=== PATIENT | female | born 1995 | race Caucasian/White ===

== ENCOUNTER 2024-08-26 07:33 | Emergency (ER) | payer BC ==
[~2024-08-26] VITALS: Ht 160 cm; Wt 86.2 kg
[2024-08-26 08:02] LABS: Source, Urine Voided
[2024-08-26 08:04] LABS: BASOPHILS ABSOLUTE AUTO 0.04 K/mm3 (0.00-0.23); BASOPHILS PERCENT AUTO 0 % (0-2); EOSINOPHILS ABSOLUTE AUTO 0.11 K/mm3 (0.00-0.68); EOSINOPHILS PERCENT AUTO 1 % (0-6); Hematocrit 37.3 % (33.0-51.0); Hemoglobin 12.9 g/dL (11.5-16.0); IMMATURE GRAN ABSOLUTE AUTO 0.06 K/mm3 (0.00-0.10); IMMATURE GRAN PERCENT AUTO 1 % (0-1); LYMPHOCYTES ABSOLUTE AUTO 2.96 K/mm3 (0.84-5.20); LYMPHOCYTES PERCENT AUTO 27 % (21-46); MONOCYTES ABSOLUTE AUTO 0.62 K/mm3 (0.16-1.47); MONOCYTES PERCENT AUTO 6 % (4-13); Mean Corpuscular HGB 32.4 pg (26.0-34.0); Mean Corpuscular HGB Conc 34.6 g/dL (31.5-36.5); Mean Corpuscular Volume 94 fL (80-100); Mean Platelet Volume 9.9 fL (9.1-12.4); NEUTROPHILS ABSOLUTE AUTO 7.18 K/mm3 (1.96-9.15); NEUTROPHILS PERCENT AUTO 65 % (41-73); Platelet Count 232 K/mm3 (150-400); RDW Coefficient Variation 13.2 % (11.7-14.2); RDW Standard Deviation 45.7 fL (35.1-46.3); Red Blood Cell Count 3.98 M/mm3 (3.80-5.20); White Blood Cell Count 10.97 K/mm3 (4.00-11.30)
[2024-08-26 08:14] LABS: Appearance, Urine Clear (Clear); Bilirubin, Urine Neg (Neg); Blood, Urine Neg (Neg); Color, Urine Yellow (P-Yellow); Glucose Qualitative, Urine Neg (Neg); Ketones, Urine Neg (Neg); Leukocyte Esterase, Urine 1+ (Neg); Nitrite, Urine Neg (Neg); Protein, Urine Neg (Neg); Specific Gravity, Urine 1.015 (1.003-1.022); Urobilinogen, Urine NORM (Normal)
[2024-08-26] MEDS ORDERED: Acetaminophen 500 MG Tab PO ONE (08:15)
[2024-08-26] MEDS ORDERED: Albuterol 2.5 MG/3 ML VIAL INH SCH (08:15)
[2024-08-26 08:20] LABS: International Normalized Ratio 1.02; Prothrombin Time Results 10.9 Sec (9.7-11.5)
[2024-08-26 08:22] LABS: Albumin, Blood 2.7 g/dL (3.4-5.0); Albumin/Globulin Ratio 0.7 (0.8-1.8); Bilirubin, Total 0.2 mg/dL (0.1-1.0); Bun/Creatinine Ratio 13.2 (12.0-20.0); Calcium, Blood 8.4 mg/dL (8.5-10.1); Creatinine, Blood 0.53 mg/dL (0.40-1.00); Globulin, Blood 3.7 g/dL (2.2-4.0); Potassium, Blood 3.9 mmol/L (3.5-5.5); Total Protein, Blood 6.4 g/dL (6.4-8.2)
[2024-08-26 08:25] LABS: Bacteria Many /hpf; Red Blood Cells, Urine 0-2 /hpf (0-2); Squamous Epithelial Cells Many /hpf (Few)
[2024-08-26 09:54] VITALS: BP 134/76
[2024-08-26] MEDS ORDERED: ALBU90OI INH (10:47)
== END 2024-08-26 10:56 | disposition home or self-care (01) ==
LOC: ER 07:33
PROVIDERS: Student in an Organized Health Care Education/Training Program
DX: O99.891 Other specified diseases and conditions complicating pregnancy (principal); R07.81 Pleurodynia; Z3A.27 27 weeks gestation of pregnancy; Z88.0 Allergy status to penicillin
CPT/HCPCS: 71045; 80053; 81001; 83735; 84484; 85025; 85379; 85610; 87086; 93005; 93010; 94640; 94664; 99285-25; A9270

== ENCOUNTER 2024-11-23 21:54 | Inpatient (IN) | payer BC ==
[~2024-11-23] VITALS: Ht 160 cm; Wt 97.7 kg
[~2024-11-23 21:54] MED LIST: ALBU90OI INH
[2024-11-23 22:15] VITALS: BP 129/78
[2024-11-24] VITALS (25 sets, daily range): BP systolic 102–133; BP diastolic 56–80
[2024-11-24] MEDS ORDERED: FentaNYL Citrate 50 MCG/ML 2 ML Injection IV PRN ×3 (00:30→09:30)
[2024-11-24] MEDS ORDERED: Acerola C500 MG PO (01:14)
[2024-11-24] MEDS ORDERED: IRON18 M1 PO (01:15)
[2024-11-24] MEDS ORDERED: PRENATAL TABLE1 EAC2 PO (01:16)
[2024-11-24] MEDS ORDERED: VITAMIN D5000 UNIT PO (01:16)
[2024-11-24] MEDS ORDERED: SERT100 PO (01:17)
[2024-11-24] MEDS ORDERED: Vitamin B Comple1 EA PO (01:17)
[2024-11-24 01:53] LABS: BASOPHILS ABSOLUTE AUTO 0.04 K/mm3 (0.00-0.23); BASOPHILS PERCENT AUTO 0 % (0-2); EOSINOPHILS ABSOLUTE AUTO 0.10 K/mm3 (0.00-0.68); EOSINOPHILS PERCENT AUTO 1 % (0-6); Hematocrit 38.4 % (33.0-51.0); Hemoglobin 13.4 g/dL (11.5-16.0); IMMATURE GRAN ABSOLUTE AUTO 0.10 K/mm3 (0.00-0.10); IMMATURE GRAN PERCENT AUTO 1 % (0-1); LYMPHOCYTES ABSOLUTE AUTO 3.17 K/mm3 (0.84-5.20); LYMPHOCYTES PERCENT AUTO 24 % (21-46); MONOCYTES ABSOLUTE AUTO 0.72 K/mm3 (0.16-1.47); MONOCYTES PERCENT AUTO 5 % (4-13); Mean Corpuscular HGB Conc 34.9 g/dL (31.5-36.5); Mean Corpuscular Volume 92 fL (80-100); NEUTROPHILS ABSOLUTE AUTO 9.25 K/mm3 (1.96-9.15); NEUTROPHILS PERCENT AUTO 69 % (41-73); NRBC ABSOLUTE 0.00 K/mm3 (0.00-0.02); NRBC Auto 0.0 /100 WBC (0.0-0.2); Platelet Count 247 K/mm3 (150-400); RDW Coefficient Variation 13.0 % (11.7-14.2); RDW Standard Deviation 43.0 fL (35.1-46.3)
[2024-11-24] MEDS ORDERED: CeFAZolin Sodium 2,000 MG in NS 100 ML IV SCH ×2 (09:15→18:00)
[2024-11-24] MEDS ORDERED: Ondansetron HCl 2 MG / ML 2ML Vial IV PRN ×3 (09:15→11:25)
[2024-11-24] MEDS ORDERED: Methylergonovine Maleate 0.2MG / ML 1ML Amp IM PRN ×2 (09:15→11:20)
[2024-11-24] MEDS ORDERED: Carboprost Tromethamine 250 MCG/ML 1ML Amp IM PRN (09:15)
[2024-11-24] MEDS ORDERED: Oxytocin 10 Unit / ML Vial IM PRN (09:15)
[2024-11-24] MEDS ORDERED: OXYTOCIN/RINGER'S LACTATE 500 ML IV PRN (09:15)
[2024-11-24] MEDS ORDERED: Metoclopramide HCl 5MG / ML 2ML Vial ONE (09:21)
[2024-11-24] MEDS ORDERED: Citric Acid/Sodium Citrate 30 ML BTL ONE (09:21)
[2024-11-24] MEDS ORDERED: HYDROmorphone HCl/Pf 1MG SYR IV PRN (09:25)
[2024-11-24] MEDS ORDERED: Prochlorperazine Edisylate 10 mg Vial IV PRN (09:25)
[2024-11-24] MEDS ORDERED: Metoclopramide HCl 5MG / ML 2ML Vial IV PRN (09:30)
[2024-11-24] MEDS ORDERED: Citric Acid/Sodium Citrate 30 ML BTL PO ONE (09:30)
[2024-11-24] MEDS ORDERED: Albuterol 2.5 MG/3 ML VIAL INH PRN (09:30)
[2024-11-24] MEDS ORDERED: Metoclopramide HCl 5MG / ML 2ML Vial IV ONE (09:35)
[2024-11-24] MEDS ORDERED: Ondansetron HCl 2 MG / ML 2ML Vial ONE (10:18)
[2024-11-24] MEDS ORDERED: Dexamethasone Sod Phos 10 MG/ML 1ML VIAL ONE (10:18)
[2024-11-24] MEDS ORDERED: Oxytocin 10 Unit / ML Vial ONE (10:19)
[2024-11-24] MEDS ORDERED: Methylergonovine Maleate 0.2MG / ML 1ML Amp ONE (10:28)
[2024-11-24 10:38] LABS: PCO2 Cord - Arterial 72.1 mmHg (40-50); PO2 Cord - Arterial < 14.0 mmHg (16-20); pH Cord - Arterial 7.17 (7.28-7.35)
[2024-11-24 10:39] LABS: PCO2 Cord - Venous 52.3 mmHg (40-50); PO2 Cord - Venous 18.3 mmHg (28-32); pH Umbilical Cord - Venous 7.31 (7.26-7.35)
[2024-11-24] MEDS ORDERED: OXYTOCIN/RINGER'S LACTATE 500 ML IV SCH (11:15)
[2024-11-24] MEDS ORDERED: Morphine Sulfate 4 MG/1 ML Injection IV PRN (11:20)
[2024-11-24] MEDS ORDERED: OxyCODONE 5 mg/Acetamin 325 mg TABLET PO PRN (11:25)
[2024-11-24] MEDS ORDERED: Tranexamic Acid 100 ML IV SCH (11:35)
[2024-11-24] MEDS ORDERED: Ketorolac Tromethamine 30mg Vial IV SCH (12:00)
[2024-11-25 06:02] VITALS: BP 126/67
[2024-11-25 06:12] LABS: BASOPHILS ABSOLUTE AUTO 0.04 K/mm3 (0.00-0.23); BASOPHILS PERCENT AUTO 0 % (0-2); EOSINOPHILS ABSOLUTE AUTO 0.06 K/mm3 (0.00-0.68); EOSINOPHILS PERCENT AUTO 0 % (0-6); Hematocrit 34.3 % (33.0-51.0); Hemoglobin 11.9 g/dL (11.5-16.0); IMMATURE GRAN ABSOLUTE AUTO 0.06 K/mm3 (0.00-0.10); IMMATURE GRAN PERCENT AUTO 0 % (0-1); LYMPHOCYTES ABSOLUTE AUTO 3.16 K/mm3 (0.84-5.20); LYMPHOCYTES PERCENT AUTO 21 % (21-46); MONOCYTES ABSOLUTE AUTO 0.95 K/mm3 (0.16-1.47); MONOCYTES PERCENT AUTO 6 % (4-13); Mean Corpuscular HGB Conc 34.7 g/dL (31.5-36.5); Mean Corpuscular Volume 93 fL (80-100); NEUTROPHILS ABSOLUTE AUTO 11.10 K/mm3 (1.96-9.15); NEUTROPHILS PERCENT AUTO 72 % (41-73); NRBC ABSOLUTE 0.00 K/mm3 (0.00-0.02); NRBC Auto 0.0 /100 WBC (0.0-0.2); Platelet Count 201 K/mm3 (150-400); RDW Coefficient Variation 13.0 % (11.7-14.2); RDW Standard Deviation 43.6 fL (35.1-46.3)
[2024-11-25 07:10] VITALS: BP 110/63
[2024-11-25] MEDS ORDERED: Prenatal Vit/FE Fumarate/FA 1 Tab PO SCH (09:00)
[2024-11-25] MEDS ORDERED: Ascorbic Acid 250 MG Chew PO SCH (09:00)
[2024-11-25] MEDS ORDERED: Cholecalciferol 1000 Unit Tablet (=25MCG) PO SCH (09:00)
[2024-11-25 17:02] VITALS: BP 116/71
[2024-11-25 20:08] VITALS: BP 136/72
[2024-11-26 01:37] VITALS: BP 129/79
[2024-11-26 03:37] VITALS: BP 117/64
[2024-11-26 08:42] VITALS: BP 125/60
[2024-11-26 13:39] VITALS: BP 116/67
[2024-11-26 19:47] VITALS: BP 137/92
[2024-11-26 19:48] VITALS: BP 128/85
== END 2024-11-26 20:03 | disposition home or self-care (01) | DRG 788 ==
LOC: OBS 21:54 → BC 21:56 → OBS 11-24 00:53 → BC 11-24 00:54 → NUR 11-24 00:54 → BC 11-24 01:24
PROVIDERS: Obstetrics & Gynecology; ADMIT Advanced Practice Midwife
PROC: 4A033R1 Measurement of Arterial Saturation, Peripheral, Percutaneous Approach (ICD-10-PCS; 2024-11-24)
PROC: 10D00Z1 Extraction of Products of Conception, Low, Open Approach (ICD-10-PCS; principal; 2024-11-24 16:30)
DX: O76 Abnormality in fetal heart rate and rhythm complicating labor and delivery (principal); F90.9 Attention-deficit hyperactivity disorder, unspecified type; O99.344 Other mental disorders complicating childbirth; O69.81X0 Labor and delivery complicated by cord around neck, without compression, not applicable or unspecified; Z79.899 Other long term (current) drug therapy; Z3A.40 40 weeks gestation of pregnancy; Z37.0 Single live birth
CPT/HCPCS: 36415; 59025; 81003; 82803; 85025; 86850; 86900; 86901; 93005; 93010; 99214; A9270; J0690; J1100; J1885; J2210; J2405; J2590; J2765; J7120